=== PATIENT | male | born 1940 | race Caucasian/White ===

== ENCOUNTER 2025-06-11 09:30 | Outpatient (CLI) | payer MEDICARE, BC ==
[2025-06-05 09:12] LABS: CREATININE 1.08 MG/DL (0.60-1.10); TOTAL CARBON DIOXIDE 29.9 MMOL/L (24-32); eGFR 65 ML/MIN
[~2025-06-11 09:30] MED LIST: OMEP40CA21 PO; VALS80TA32 PO
[2025-06-11 10:04] LABS: CREATININE 0.96 MG/DL (0.60-1.10); TOTAL CARBON DIOXIDE 26.4 MMOL/L (24-32); eGFR 74 ML/MIN
--- NOTE | 2025-06-11 12:55 | RADIOLOGY REPORT ---
Exam: CT CT ABDOMEN PELVIS W/ ORAL CONTRAST History: COLOSTOMY STATUS Comparison Study: US ULTRASOUND OF ABDOMEN on DOS: 02/06/25, CT CT ABDOMEN PELVIS W/ IV CONTRAST on DOS: 02/06/25, CT CT ABDOMEN PELVIS W/ RECTAL CON CONTRAST on DOS: 01/29/25, CT CT ABDOMEN PELVIS W/ IV CONTRAST on DOS: 01/29/25 Technique: Multidetector spiral CT of the abdomen was performed from lung bases to pubic symphysis. Imaging was performed without IV contrast. Axial, coronal and sagittal multiplanar reformats were obtained from the axial data set by the technologist. Radiation Dose : 1. Abdomen/Pelvis: CTDIvol 10.7 mGy, DLP 554.1 mGy*cm. Findings: Evaluation of solid organs is limited due to lack of intravenous contrast use. Lung Bases: Moderate left pleural effusion. Cardiomegaly. Coronary artery calcifications. Vascular calcifications of the aorta. Liver: The liver is normal in size. No focal lesions. Gallbladder and Biliary Tree: Unremarkable Spleen: Unremarkable Pancreas: The pancreas is grossly normal in appearance. Adrenal Glands: Unremarkable Kidneys: Right kidney is unremarkable. 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 Bladder: Grossly unremarkable for degree of distention. Bowel: The stomach is grossly normal in appearance. Post colectomy. Normal appendix is visualized in the right lower quadrant without findings of appendicitis. Ascites: Absent Lymphadenopathy: No mesenteric, retroperitoneal or periportal lymphadenopathy. 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 Vasculature: The visualized abdominal aorta is normal in size and caliber. There is extensive atherosclerotic calcification of the aorta and its branches. Evaluation of abdominal and pelvic vessels is limited due to lack of intravenous contrast. Pelvic Organs: Unremarkable Musculoskeletal: No aggressive focal bony lesions, acute fractures or dislocation. IMPRESSION: Moderate left pleural effusion. 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 Cardiomegaly. Radiation optimization: All CT scans at this facility use at least one of these dose optimization techniques: automated exposure control mA and/or kV adjustment per patient size (includes targeted exams where dose is matched to clinical indication) or iterative reconstruction.
== END 2025-06-11 23:59 | disposition home or self-care (01) ==
LOC: RAD 09:30
PROVIDERS: ATTEND Surgery
DX: Z01.818 Encounter for other preprocedural examination (principal); I51.7 Cardiomegaly; Z93.3 Colostomy status; I25.10 Atherosclerotic heart disease of native coronary artery without angina pectoris; I70.0 Atherosclerosis of aorta; J90 Pleural effusion, not elsewhere classified
CPT/HCPCS: 36415; 74176; 80048

== ENCOUNTER 2025-09-06 15:03 | Outpatient (CLI) | payer MEDICARE, BC ==
[~2025-09-06 15:03] MED LIST changes: +iohexol 300mg/ml 100ml inj. ONE
--- NOTE | 2025-09-06 16:01 | RADIOLOGY REPORT ---
PROCEDURE: CT CT CHEST W/ IV CONTRAST 09/06/2025 03:21 PM History: PLEURAL EFFUSION COMPARISON: DI CHEST,SINGLE VIEW on DOS: 02/16/25, DI CHEST,SINGLE VIEW on DOS: 02/14/25, DI CHEST,SINGLE VIEW on DOS: 02/12/25, DI CHEST,SINGLE VIEW on DOS: 02/11/25, DI CHEST,SINGLE VIEW on DOS: 02/10/25 TECHNIQUE: After the uneventful administration of contrast intravenously, CT imaging was performed through the chest. Coronal and sagittal reformations were performed by the technologist. Radiation Dose : CT Dose: CTDI volume is 11.81 mGy. Dose-length product is 427.83 mGy*cm CONTRAST: Type of contrast: Omnipaque 300 Contrast injected: 100 ml FINDINGS: Lower neck: Normal thyroid. Lungs: Central airways patent. Moderate passive atelectatic changes within the left lower lobe. Mild passive atelectatic changes within the right lower lobe. Heart/Vascular Structures: Normal heart size. Coronary calcifications. Thin pericardial effusion. Mild smooth pericardial thickening. Lymph Nodes: No adenopathy Pleura: Moderate left-sided pleural effusion. Trace right-sided pleural effusion. Musculoskeletal: No acute osseous abnormality. Soft tissues: Normal. Upper abdomen: Limited portions of the upper abdomen are unremarkable. IMPRESSION: Moderate left-sided pleural effusion and trace right-sided pleural effusion with associated atelectatic changes. Thin pericardial effusion with smooth pericardial thickening and enhancement. Please correlate with any concern for an inflammatory pericarditis.
== END 2025-09-06 23:59 | disposition home or self-care (01) ==
LOC: RAD 15:03
PROVIDERS: ATTEND Specialist
DX: J90 Pleural effusion, not elsewhere classified (principal); R93.89 Abnormal findings on diagnostic imaging of other specified body structures; I25.10 Atherosclerotic heart disease of native coronary artery without angina pectoris; J98.11 Atelectasis
CPT/HCPCS: 71270; Q9967